=== PATIENT | female | born 1940 | race Caucasian/White ===

== ENCOUNTER 2023-12-30 06:17 | Day surgery (SDC) | payer BC, SELFPAY ==
[2023-12-30] VITALS (12 sets, daily range): BP systolic 114–132; BP diastolic 66–91; BMI 29.0
[2023-12-30] MEDS: TYLENOL 1000 MG PO (11:05)
[2023-12-30] MEDS: NORMOSOL-R 1000 IV (11:06)
[2023-12-30] MEDS: CELEBREX 200 MG PO (11:16)
== END 2023-12-30 15:57 | disposition home or self-care (01) ==
LOC: SDS 06:17
PROVIDERS: ATTENDING PHYSICIAN Orthopaedic Surgery Hand Surgery; FAMILY PHYSICIAN Physician Assistant
DX: M75.41 Impingement syndrome of right shoulder (principal); G56.01 Carpal tunnel syndrome, right upper limb; M75.101 Unspecified rotator cuff tear or rupture of right shoulder, not specified as traumatic; M75.21 Bicipital tendinitis, right shoulder
CPT/HCPCS: 29827; 29826; 24310; 64721; C1713

== ENCOUNTER → 2024-07-28 10:01 | Outpatient (REF) | payer BC, SELFPAY | LOC: HWRCS 10:01 | PROVIDERS: ATTENDING PHYSICIAN Internal Medicine Cardiovascular Disease; FAMILY PHYSICIAN Internal Medicine | DX: I35.0 Nonrheumatic aortic (valve) stenosis (principal) | CPT/HCPCS: 93306 ==

== ENCOUNTER 2024-08-16 07:26 | Day surgery (SDC) | payer BC, SELFPAY ==
[2024-08-16] VITALS (12 sets, daily range): BP systolic 107–136; BP diastolic 54–120; BMI 30.4
[2024-08-16 08:05] LABS: Hematocrit 43.1 % (37.0-47.0); Hemoglobin 15.2 g/dL (12.0-16.0); Mean Corp Hgb Conc. 35.3 g/dL (33.0-37.0); Mean Corpuscular Hgb 32.4 pg (27.0-31.0); Mean Corpuscular Volume 91.9 fL (81.0-99.0); Mean Platelet Volume 10.5 fL (7.4-10.4); Platelet Count 236 10^3/uL (130-400); Red Blood Cell Count 4.69 10^6/uL (4.20-5.40); Red Cell Dist. Width 12.1 % (11.5-14.5); White Blood Cell Count 5.9 10^3/uL (4.8-10.8)
[2024-08-16 08:14] LABS: ALT (SGPT) 26 U/L (0-35); AST (SGOT) 27 U/L (14-36); Albumin 5.1 g/dl (3.5-5.0); Alkaline Phosphatase 65 U/L (38-126); Blood Urea Nitrogen 24 mg/dl (7-17); Calcium 9.7 mg/dl (8.4-10.2); Carbon Dioxide 22 mmol/L (22-30); Chloride 106 mmol/L (98-107); Glucose 159 mg/dl (70-99); Potassium 4.4 mmol/L (3.5-5.1); Sodium 141 mmol/L (135-145); Total Bilirubin 0.9 mg/dl (0.2-1.3); Total Protein 7.6 g/dl (6.3-8.2); eGFR > 60.00
[2024-08-16] MEDS: LOW STRENGTH ASPIRIN 324 MG PO (08:30)
[2024-08-16] MEDS: NSS 264 ML IV (08:31)
[2024-08-16] MEDS: PEPCID 40 MG PO (09:31)
--- NOTE | 2024-08-16 11:07 | ITS.CL.CATH ---
Operating Room Assistant - Catheterization
Cardiac Catheterization
Procedure Report:
RIGHT AND LEFT HEART STUDY
Date of Procedure: August 16, 2024
Referring: Dr. Rosi Arroyo
PROCEDURES:
1. Right heart catheterization
2. Left heart catheterization with coronary and single-plane left ventriculography
INDICATION: This is an 84-year-old female with a past medical history notable for aortic stenosis. Last summer she experienced a syncopal episode that was attributed to dehydration. She has chronic back discomfort. She has noticed some dyspnea
when walking up hills that seems more prominent this year than she had noted in the past.
Serial echocardiograms have been followed.
-07/28/2024: Echo: LV: EF 70-75%, AV: Peak and mean 72/46 mmHg with peak velocity 4.25 m/s, and CECILE 1.0 cm�. AI: moderate. MV: Mild MR, TV: Mild TR with estimated PAP 32 mmHg
-08/12/2023: Echo: LV: Normal size and function. EF 60-65%. MV: Thickened with mitral annular calcification, AV: P/M gradient 36/25 mmHg with peak velocity 3.0 m/s and CECILE 1.5 cm�. Mild to moderate AI, TV: Mild TR
-08/06/2022: Echo: LV: Normal size. Mild LVH. EF 55-60%. MV: MAC with mild MR, AV: Calcified with P/M gradient 38/18 mmHg with peak velocity of 3.0 m/s, mild AI, TV: Mild-moderate TR with estimated PAP 31-36 mmHg
-01/15/2022: Echo: LV: EF 65-70%. MV: Trace MR, AV: P/M gradient 49/31 mmHg, CECILE 1.1 cm�, mild AI. TV: Trace TR with estimated PAP 28 mmHg
ACCESS: Right radial artery, 6 [place] sheath in right common femoral vein, 6 [place] sheath
HEMODYNAMICS : mmHg
RA (m) : 12
RV (s/d) : 29/6, 18
PA (s/d, m) : 26/11, 19
PCWP (m) : 12
AO (s/d, m) : 107/64, 84
LV (s/d) : 150/10
LVEDP : 15
Estimated Chelsy Cardiac Output: 5.7 L / min and Cardiac Index: 2.9 L/ min / m-2
Systemic vascular resistance: 12.6 Wood units or 1010 [id number]-blr-ro(-5)
Pulmonary vascular resistance: 1.22 Wood units or 98.2 tayoc-guo-es(-5)
Aortic Valve:
Mean Gradient: 36 mmHg
Aortic Valve Area: 0.87 to 0.91 cm2
CORONARY FINDINGS :
Dominance: Right
LEFT MAIN: Normal
LEFT ANTERIOR DESCENDING: The LAD is a large-caliber vessel originating normally from the left main and running in the anterior interventricular groove. The LAD is widely patent with only minor luminal irregularities
CIRCUMFLEX: The circumflex is a moderate to large caliber nondominant vessel supplying 2 obtuse marginal branches. Only minor irregularities are noted
RIGHT CORONARY ARTERY: Large-caliber dominant vessel with only minor irregularities over its course
VENTRICULOGRAPHY: Left ventriculography is performed in SINGH projection. The digital single-plane left ventricular ejection fraction is estimated at 65%.
RADIATION SUMMARY: Fluoro Time (min): 12.8, Dose (mGy): 410.2, DAP (Gy.cm2) : 45.5
CONCLUSIONS
1. Nonobstructive coronary disease
2. Preserved left ventricular systolic function
3. Compensated right and left ventricular filling pressures
4. Moderate to severe aortic stenosis with recent decline in exercise tolerance especially when walking up hills.
RECOMMENDATIONS
1. Begin TAVR evaluation given recent development of exertional intolerance
2. Ms Fink was not sure she could take aspirin due to risk of GI bleeding
Copy to: Dr. Rosi Arroyo
--- NOTE | 2024-08-16 14:17 | CONSULT.STRU ---
Consultation
-
Date/Time Consultation Requested: 08/16/2024
Date/Time Consultation Performed: 08/16/2024
Requesting Provider: Dr. Jovani Robbins
Performing Provider: CORTEZ Mckee
Reason for Consultation: Aortic stenosis/ TAVR evaluation
Patient History
Physicians
Family Physician: Dr. Moe Gustafson
Outpatient Full Stack Developer: Dr. Rosi Arroyo
Primary Full Stack Developer: Dr. Rosi Arroyo
History of Present Illness
Procedure Type:�Isolated AVR
PERIOPERATIVE OUTCOME ESTIMATE %
Operative Mortality 2.19%
Morbidity & Mortality 5.76%
Stroke 1.23%
Renal Failure 0.689%
Reoperation 2.43%
Prolonged Ventilation 2.58%
Deep Sternal Wound Infection 0.04%
Long Hospital Stay (>14 days) 2.66%
Short Hospital Stay (<6 days)* 43.4%
Patient is a very pleasant 84yo female here today for cardiac cath as part of her aortic stenosis evaluation. She denies any new symptoms of PIMENTEL, fatigue or lightheadedness. She denies chest pain, palpitations and orthopnea. She does state she gets
dyspneic on exertion when having to ambulate up a significant incline but says this has been happening for years. It is really unclear if related to her aortic valve. Her echocardiogram in 07/28/2024 was significant for a PG/M/46, CECILE: 1.0, peak
velocity 425cm/s, mild to moderate AI, mild MR, EF: 70-75%. This is increased from previous echo with PG/M/25. Cardiac cath today her Aortic Valve MG was 36mmHg, CECILE: 0.87 to 0.91. Non-obstructive CAD.
Reviewed the pathophysiology of aortic stenosis with the patient. Explained the treatment options of SAVR and TAVR. Explained the TAVR evaluation process including follow up BMP, CT TAVR scan, CT surgery consult and Heart Team discussion. Provided
with script for BMP next week, script and appointment for CT TAVR, Consult appointment with Dr. Guzmán and a copy of the TAVR education booklet with contact information. Allowed for and answered questions. Patient also with shrimp allergy so as a
precaution prescribed Prednisone 50mg - 13 hours, 7 hours and 1 hour prior to contrast administration plus benadryl 50mg one hour prior.
Past Medical History
Past Medical History: Covid-19 (09/2020), PIMENTEL (when going up significant inclines), HTN, Hypercholesterolemia, Valvular Disease (Mild MR, Moderate to severe , mild to moderate AI) and Other (LVH, CVI, pre-diabetic, arthritis, h/o osteomyelitis,
chronic back issues/scoliosis)
Past Surgical History
Past Surgical History: Appendectomy, Tonsilectomy and Other (partial toe amputation 3rd toe, [place]. TKR, R-ERIN, Left hip ORIF, surgery for polycystic ovaries, rotator cuff repair)
Dental History
Last visit 08/15/2024- Dr. Cade in [facility]
Family History
Mother: at Age (86yo after significant fall)
Father: at Age (58yo- rheumatic heart, CHF)
Social History
Alcohol: Occasional
Drug: None
Tobacco: Smoker (Quit 50 years ago)
Personal:
Living: With Spouse
Allergies
Allergy/AdvReac Type Severity Reaction Status Date / Time
aspirin Allergy Unknown Verified 08/16/24 07:59
NSAIDS (Non-Steroidal Allergy GI Bleed Verified 08/16/24 07:59
Anti-Inflamma
pollen extracts Allergy Sneezing, Verified 08/16/24 07:59
coughing
shrimp Allergy Hives Verified 08/16/24 07:59
oxycodone AdvReac Mild Unknown Verified 12/30/23 10:51
lisinopril AdvReac COUGH Verified 08/16/24 07:59
Home Medications
�Medication �Instructions �Recorded �Confirmed �Type
multivitamin with folic acid 400 1 tab PO DAILY Supplement 05/08/09 08/16/24 History
mcg tablet (Tab-A-Agus)
losartan 50 mg tablet 50 mg PO DAILY Blood pressure 07/26/21 08/16/24 History
vitamin B complex 1 tab PO PRN PRN Twitchy eyes 07/26/21 08/16/24 History
atorvastatin 10 mg tablet 10 mg PO DAILY 12/28/23 08/16/24 History
Palmer 3 1 tab PO DAILY 08/16/24 08/16/24 History
biotin 5 mg tablet 5 mg PO MOWEFR 08/16/24 08/16/24 History
STS%
STS %: 2.19%
Review of Systems
-
History Source: Patient
General: Reports No Symptoms
HEENT: Reports No Symptoms
Respiratory: Reports PIMENTEL (with significant exertion, unchanged in years)
Cardiac: Reports No Symptoms; Denies Chest Pain, CAD or Edema
Abdomen/GI: Reports No Symptoms; Denies Abdominal Pain, Nausea, Vomiting or Diarrhea
: Reports No Symptoms; Denies Dysuria, Frequency or Frequency
Musculoskeletal: Reports Edema (occasional mild LE)
Skin: Reports Rash (occurs annually in March and lasts until May, unknown diagnosis )
Neurological: Reports No Symptoms; Denies CVA, TIA, Headaches or Seizures
Vascular: Reports No Symptoms
Physical Exam
Vital Signs
Temp 97.5 F 08/16/24 08:07
Temp route: Oral 08/16/24 08:07
Pulse 87 08/16/24 14:00
Resp Rate 19 08/16/24 14:00
Blood pressure 134/79 08/16/24 13:56
Blood pressure extremity used: Left upper arm 08/16/24 12:50
Position: Lying 08/16/24 12:50
MAP (cuff-Julien Monitor) 96 08/16/24 13:56
SaO2 94 08/16/24 14:00
Oxygen Mode of Delivery Room air 08/16/24 12:50
Can the patient verbally communicate their pain? Yes 08/16/24 12:50
Actual Weight 88.1 kg 08/16/24 08:16
Body Mass Index (BMI) 30.4 08/16/24 08:16
Labs
08/16/24 07:40
08/16/24 07:40
Diagnostic Studies
Cardiac Catheterization 08/16/2024:
HEMODYNAMICS : mmHg
RA (m) : 12
RV (s/d) : 29/6, 18
PA (s/d, m) : 26/11, 19
PCWP (m) : 12
AO (s/d, m) : 107/64, 84
LV (s/d) : 150/10
LVEDP : 15
Estimated Chelsy Cardiac Output: 5.7 L / min and Cardiac Index: 2.9 L/ min / m-2
Systemic vascular resistance: 12.6 Wood units or 1010 wvuvj-ptw-rj(-5)
Pulmonary vascular resistance: 1.22 Wood units or 98.2 wivll-tps-de(-5)
Aortic Valve:
Mean Gradient: 36 mmHg
Aortic Valve Area: 0.87 to 0.91 cm2
CORONARY FINDINGS :
Dominance: Right
LEFT MAIN: Normal
LEFT ANTERIOR DESCENDING: The LAD is a large-caliber vessel originating normally from the left main and running in the anterior interventricular groove. The LAD is widely patent with only minor luminal irregularities
CIRCUMFLEX: The circumflex is a moderate to large caliber nondominant vessel supplying 2 obtuse marginal branches. Only minor irregularities are noted
RIGHT CORONARY ARTERY: Large-caliber dominant vessel with only minor irregularities over its course
VENTRICULOGRAPHY: Left ventriculography is performed in SINGH projection. The digital single-plane left ventricular ejection fraction is estimated at 65%.
RADIATION SUMMARY: Fluoro Time (min): 12.8, Dose (mGy): 410.2, DAP (Gy.cm2) : 45.5
CONCLUSIONS
1. Nonobstructive coronary disease
2. Preserved left ventricular systolic function
3. Compensated right and left ventricular filling pressures
4. Moderate to severe aortic stenosis with recent decline in exercise tolerance especially when walking up hills.
RECOMMENDATIONS
1. Begin TAVR evaluation given recent development of exertional intolerance
2. Ms Fink was not sure she could take aspirin due to risk of GI bleeding
Echocardiogram 07/28/2024:
CONCLUSIONS
1. Mild concentric left ventricular hypertrophy with dynamic left ventricular
systolic function, EF 70-75%
2. Thickened mitral leaflets with mitral annular calcification, mild mitral
regurgitation and normal left atrium
3. Moderate to severe aortic stenosis, peak/mean gradient 72/46 mmHg, aortic
valve area 1.0 cm2, dimensionless index 0.31. Mild to moderate aortic
regurgitation
4. Normal right heart with pulmonary artery systolic pressure 32 mmHg
5. The ascending aorta is 3.8 cm
In July 2023, peak and mean aortic valve gradients were 36 and 25 mmHg.
The aortic valve area was 1.5 cm2
Indications:
Nonrheumatic aortic (valve) stenosis
Rhythm: Atrial fibrillation
Portable Study: No
Technical Quality: Good
Contrast: None
BP: 118 / 82
PROCEDURE
A complete Transthoracic Echocardiogram was performed utilizing two-dimensional
evaluation with color flow and spectral Doppler analysis.
FINDINGS
Left Ventricle
Normal left ventricular chamber size. Mild concentric left ventricular
hypertrophy. Normal regional wall motion. Normal left ventricular systolic
function. Normal diastolic function. Left ventricular ejection fraction is 70-
75% by Haq's method of discs. Normal diastolic function.
Right Ventricle
Normal right ventricular size and function.
Left Atrium
Normal left atrium. Indexed LA volume is within normal range (15-34 mL/m2).
Right Atrium
The right atrium is of normal size as is the IVC.
Mitral Valve
Thickened mitral valve leaflets. Mitral annular calcification. Mitral valve
opens normally. Mild mitral regurgitation.
Aortic Valve
Trileaflet aortic valve. Thickened aortic valve with restricted leaflet motion.
Peak/mean gradients across the valve are 72/46 mmHg. Using an LVOT of 2.2 cm
the calculated valve area is 1.0 cm2. Moderate to severe aortic stenosis.
Moderate aortic regurgitation by pressure half-time but appears mild by color-
flow, Dimensionless index 0.31
Tricuspid Valve
Structurally normal tricuspid valve. Tricuspid valve opens normally. Mild
tricuspid regurgitation. Estimated pulmonary artery pressure of 32 mmHg,
assuming a right atrial pressure of 3 mmHg. Right heart pressures were not
elevated.
Pulmonic Valve
Structurally normal pulmonic valve. Pulmonic valve opens normally. Trace
pulmonic regurgitation.
Pericardium\\Pleura
Normal pericardium and pleura without evidence of effusion.
Aorta
Sinuses of Valsalva (3.7 cm) and ascending aorta 3.8 cm dilatation. The aortic
arch is normal in caliber.
Other Finding
The IVC is of normal size and demonstrates normal respiratory variation.
Interatrial septum is intact with no evidence of shunting by color flow
Doppler. No intracardiac mass or thrombus formation seen.
MEASUREMENTS (Male / Female) Normal Values
2D ECHO
LV Diastolic Diameter PLAX 4.2 cm 4.2 - 5.9 / 3.9 - 5.3 cm
LV Systolic Diameter PLAX 2.7 cm
IVS Diastolic Thickness 1.1 cm 0.6 - 1.0 / 0.6 - 0.9 cm
LVPW Diastolic Thickness 1.1 cm 0.6 - 1.0 / 0.6 - 0.9 cm
LV Relative Wall Thickness 0.5
LVOT Diameter 2.2 cm
LV Ejection Fraction MOD BP 73.6 % >= 55 %
LV Stroke Volume MOD BP 107.4 cm3
LV Stroke Volume MOD 4C 95.2 cm3
LV Stroke Volume 4C AL 109.0 cm3
LV Stroke Volume MOD 2C 102.1 cm3
LV Stroke Volume 2C AL 110.1 cm3
LA Area 4C View 20.4 cm2 <= 20 cm2
LA Length 4C 6.0 cm
LA Volume 54.6 cm3 18 - 58 / 22 - 52 cm3
LA Volume Index 31.6 cm3/m2 16 - 34 cm3/m2
RV Diastolic Basal Diameter 3.0 cm 2.0 - 2.8 cm
RV Diastolic Mid Diameter 2.6 cm 2.7 - 3.3 cm
Aorta at Sinotubular Diameter 3.6 cm
Ascending Aorta Diameter 3.8 cm
Aorta at Sinuses Diameter 3.7 cm
M-MODE
AV Cusp Separation MM 0.5 cm
DOPPLER
AV Peak Velocity 425.0 cm/s
AV Peak Gradient 72.3 mmHg
AV Mean Gradient 48.0 mmHg
AV Velocity Time Integral 94.1 cm
AI Peak Velocity 450.3 cm/s
AI Peak Gradient 81.1 mmHg
AI Pressure Half Time 306.3 ms
LVOT Peak Velocity 133.0 cm/s
LVOT Peak Gradient 7.1 mmHg
LVOT Velocity Time Integral 28.9 cm
LVOT Stroke Volume 110.0 cm3
LVOT Stroke Volume Index 52.4 ml/m2 empty
AV Area Cont Eq vti 1.2 cm2
AV Area Cont Eq pk 1.2 cm2
Mitral E Point Velocity 100.0 cm/s
Mitral A Point Velocity 182.0 cm/s
Mitral E to A Ratio 0.5
LV E' Lateral Velocity 9.8 cm/s
Mitral E to LV E' Lateral Ratio 10.2
LV E' Septal Velocity 9.9 cm/s
Mitral E to LV E' Septal Ratio 10.1
TR Peak Velocity 268.0 cm/s
TR Peak Gradient 28.7 mmHg
Exam
General: Well Developed, Well Nourished, No Apparent Distress and Comfortable
HEENT: Moist Mucous Membranes and PERRLA
Neck: Trachea Midline
Respiratory: Clear; Negative Wheezes, Crackles, Rhonchi or Accessory Muscle Use
Cardiac: S1/S2, Regular Rhythm and Murmur (Grade III/ systolic )
GI: Soft, Non Tender, Non Distended and Normal Bowel Sounds
Rectal: Deferred by Provider
Skin: Warm and Dry; Negative Rash
Neuro: AO x 3, No Motor Deficits and Nonfocal/Grossly Intact
Extremities: Pulses (+2 DP pulses bilateral LE); Negative Lower Level Edema
Psych: Calm
Assessment / Plan
-
Severe Aortic stenosis:
��������������� Continue evaluation for TAVR
��������������� BMP 08/23/[address] [facility]
��������������� CT TAVR scan 09/01/2024 at 0930 at
��������������� CT surgery consult with Dr. Guzmán 09/15/2024
��������������� Heart team discussion at [facility]
Dental Clearance
Will need to be on ASA 81mg daily for TAVR, begin today to see if able to tolerate without bleeding hemorrhoids
Data Reviewed
-
EKG: Report Reviewed by me
Grinder: Report Reviewed by me and Discussed with Physician
Echo: Report Reviewed by me and Discussed with Physician
Labs: Labs Reviewed by me
Old Records: Reviewed (Cardiology office notes)
Total Time Spent with Patient (in minutes): 35
== END 2024-08-16 14:20 | disposition home or self-care (01) ==
LOC: CATH 07:26
PROVIDERS: ATTENDING PHYSICIAN Internal Medicine Interventional Cardiology; FAMILY PHYSICIAN Internal Medicine; OTHER PHYSICIAN Internal Medicine Cardiovascular Disease
DX: I35.0 Nonrheumatic aortic (valve) stenosis (principal); Z90.49 Acquired absence of other specified parts of digestive tract; E78.00 Pure hypercholesterolemia, unspecified; M86.60 Other chronic osteomyelitis, unspecified site; R73.03 Prediabetes; R06.09 Other forms of dyspnea; R55 Syncope and collapse; I25.10 Atherosclerotic heart disease of native coronary artery without angina pectoris; Z82.49 Family history of ischemic heart disease and other diseases of the circulatory system; Z86.16 Personal history of COVID-19
CPT/HCPCS: 80053; 85027; 93460; C1769; C1894; Q9967

== ENCOUNTER → 2024-08-26 10:46 | Outpatient (REF) | payer BC, SELFPAY ==
[2024-08-26 15:27] LABS: Blood Urea Nitrogen 19 mg/dl (7-17); Calcium 9.5 mg/dl (8.4-10.2); Carbon Dioxide 26 mmol/L (22-30); Chloride 103 mmol/L (98-107); Glucose 104 mg/dl (70-99); Potassium 4.5 mmol/L (3.5-5.1); Sodium 143 mmol/L (135-145); eGFR > 60.00
== END ==
LOC: HWLAB 10:46
PROVIDERS: ATTENDING PHYSICIAN Nurse Practitioner Adult Health; FAMILY PHYSICIAN Internal Medicine
DX: I35.0 Nonrheumatic aortic (valve) stenosis (principal)
CPT/HCPCS: 36415; 80048

== ENCOUNTER → 2024-09-01 09:03 | Outpatient (REF) | payer BC, SELFPAY | LOC: RAD 09:03 | PROVIDERS: ATTENDING PHYSICIAN Nurse Practitioner Adult Health; FAMILY PHYSICIAN Internal Medicine; OTHER PHYSICIAN Thoracic Surgery (Cardiothoracic Vascular Surgery); REFERRING PHYSICIAN Internal Medicine Cardiovascular Disease | DX: I35.0 Nonrheumatic aortic (valve) stenosis (principal) | CPT/HCPCS: 74174; 75572; Q9967 ==

== ENCOUNTER 2024-11-10 05:27 | Inpatient (IN) | payer BC, MEDICARE, SELFPAY ==
[2024-11-01 11:58] VITALS: BMI 29.8
[2024-11-01 12:44] LABS: % Basophils 0.8 % (0-2); % Eosinophils 1.6 % (0-6); % Immature Granulocytes 0.4 % (0-0.5); % Lymphocytes 33.7 % (20.5-51.1); % Monocytes 7.2 % (1.7-9.3); % Neutrophils 56.3 % (42.2-75.2); Absolute Eosinophils 0.1 10^3/uL (0-0.7); Absolute Lymphocytes 1.7 10^3/uL (1.2-3.4); Absolute Monocytes 0.4 10^3/uL (0.1-0.6); Absolute Neutrophils 2.8 10^3/uL (1.4-6.5); Hematocrit 43.9 % (37.0-47.0); Hemoglobin 14.6 g/dL (12.0-16.0); Mean Corp Hgb Conc. 33.3 g/dL (33.0-37.0); Mean Corpuscular Hgb 32.1 pg (27.0-31.0); Mean Corpuscular Volume 96.5 fL (81.0-99.0); Mean Platelet Volume 9.8 fL (7.4-10.4); Nucleated Red Blood Cells % 0 %; Platelet Count 248 10^3/uL (130-400); Red Blood Cell Count 4.55 10^6/uL (4.20-5.40); Red Cell Dist. Width 12.1 % (11.5-14.5)
[2024-11-01 12:59] LABS: ALT (SGPT) 29 U/L (0-35); APTT 30.3 Sec (23.4-35.0); AST (SGOT) 30 U/L (14-36); Albumin 4.6 g/dl (3.5-5.0); Alkaline Phosphatase 70 U/L (38-126); Blood Urea Nitrogen 19 mg/dl (7-17); Calcium 9.3 mg/dl (8.4-10.2); Carbon Dioxide 29 mmol/L (22-30); Chloride 102 mmol/L (98-107); Direct Bilirubin 0.1 mg/dl (0.0-0.4); Estimated Creatinine Clearance 70 ml/min; Glucose 101 mg/dl (70-99); INR 0.91; PT 12.5 Sec (11.4-14.6); Potassium 4.1 mmol/L (3.5-5.1); Sodium 141 mmol/L (135-145); Total Bilirubin 0.6 mg/dl (0.2-1.3); Total Protein 7.2 g/dl (6.3-8.2); eGFR > 60.00
[2024-11-01 13:07] LABS: NT-proBNP 65.4 pg/ml
[2024-11-01 13:23] LABS: Urine Albumin Negative (Neg - Trace); Urine Bilirubin Negative (Negative); Urine Character Clear (Clear); Urine Color Yellow; Urine Glucose Negative (Negative); Urine Ketone Negative (Negative); Urine Leukocyte Negative (Negative); Urine Nitrite Negative (Negative); Urine Occult Blood Negative (Negative); Urine Specific Gravity 1.015 (<1.030); Urine Urobilinogen Negative (Neg - 1+)
[2024-11-01 13:43] LABS: Glycohemoglobin (HgbA1c) 5.6 % (4.0-5.6)
--- NOTE | 2024-11-01 13:43 | CM ---
Met with Mrs. Fink in [facility]. She states prior to admission she resides with her spouse in a two story home with one step to enter. She states she has a full flight of steps to get to bedroom/full bathroom. She states she has a powder room on the
first floor. She states she mainly stays on the first floor. She states prior to admission she was independent with ambulation and adls. She states she does not have any DME in the home. She states she has a prescription plan. The discharge plan
is to retrun home with her spouse and a home visit by the Transitional Care Nurse when medically stable.
We reviewed pre-op and post-op routines. we reviewed the shower instructions. She has the soap, written instructions and the TAVR Educational Booklet. We also reviewed restrictions including driving and lifting restrictions. We discussed a home
visit by the Transitional Care Nurse. She is agreeable to a home visit. The plan is for TAVR on 11/10/24.
--- NOTE | 2024-11-01 15:10 | HPS.HSE ---
Family Physician
-
Family Physician: Moe Gustafson
Radiology Physician: Rosi Arroyo
Chief Complaint
-
Severe aortic stenosis- pre-operative History and Physical for TAVR
History of Present Illness
Dinorah Fink is an 84-year-old female with known progressive aortic valve stenosis. Her most recent echocardiogram demonstrated a peak/mean gradient of 72/46 mmHg, respectively. CECILE was calculated to be 1.0 and peak velocity was 4.25. Her left heart
catheterization revealed nonobstructive coronary disease. Her cardiac index was 2.9, invasive mean gradient was 36 mmHg, calculated CECILE was to be 0.8-0.9. From a symptomatology standpoint, she describes some increased fatigue, and some SOB when
walking inclines / hikes. In comparison to 1 year ago, she feels about the same, she tells me that she has been SOB for quite some time and had an episode of syncope 3 years ago that was unexplained. She denies chest pain, palpitations, PND,
orthopnea or peripheral edema.
Dinorah's history and studies were reviewed by the heart team and the team was in agreement that TAVR utilizing a 34mm evolut valve was the appropriate treatment for her aortic stenosis. Reviewed with her the risks of TAVR including PPM, bleeding and
stroke. She is a full rescue per Dr. Guzmán's office consult. She will hold all her medications except her aspirin on 11/10. She will take that prior to her 529 arrival. She is aware she will receive a call on to confirm her arrival. Allowed for
and answered questions.
Medical History
Past Medical History
Past Medical History: Reports HTN, Hypercholesterolemia, Valvular Disease (severe aortic stenosis, mild MR) and Other (arthritis, polycystic ovary disease,venous insufficiency, h/o bursitis R-UE, Carpel tunnel L-hand)
Past Surgical History: Reports Tonsilectomy and Other (partial amputation of right 3rd toe, R-ERIN, Bilateral TKR, ORIF left hip, bilateral cataract surgery, repair of torn rotator cuff)
Social History
Tobacco: Former Smoker
Alcohol: Occasional
Personal:
Living: With Family
Employment: Retired
Family History
Family History: Not pertinent
Allergies / Home Medications
Allergies reflects when Allergies were last updated in [employer].
Home Medications with original date entered in [employer]
Allergy/Medication List:
Allergies:
Lisinopril
NSAIDs
Oxycodone
Shrimp
Medications:
ASA 81mg daily
Lipitor(Atorvastatin Calcium) 10 MG Tablet 1 tablet Orally Once a day
Losartan Potassium 50 MG Tablet 1 tablet Orally Once a day
Review of Systems
-
History Source: Patient
Constitutional: Reports Fatigue; Denies Fever, Weight Gain or Weight Loss
EENT: Reports Other (post nasal drip)
Respiratory: Reports Cough (occasional, clear secretions)
Cardiac: Reports No Symptoms; Denies Chest Pain, Palpitations or Syncope
Abdomen/GI: Reports No Symptoms; Denies Abdominal Pain, Nausea, Vomiting or Diarrhea
: Reports No Symptoms; Denies Dysuria, Frequency or Urgency
Musculoskeletal: Reports No Symptoms
Skin: Reports No Symptoms
Neurological: Reports No Symptoms; Denies Headache, Weakness or Numbness
Endocrine: Reports No Symptoms
Hematologic/Lymphatic: Reports No Symptoms
Psych: Reports No Symptoms and Calm
Physical Exam
Physical Exam
General: Well Developed, Well Nourished, No Apparent Distress and Comfortable
HEENT: NormoCephalic, Moist mucous membranes and PERRLA
Respiratory: Clear and Non Labored Respirations; No Wheezes, Rales, Rhonchi or Crackles
Cardiac: S1/S2, Regular Rhythm and Murmur (Grade III/ systolic)
Breast: Deferred by me
GI: Soft, Non Tender, Non Distended and Normal Bowel Sounds
Rectal: Deferred by Provider
Genito-urinary: Deferred by me
Musculoskeletal: No Clubbing, No Cyanosis and No Edema
Skin: Warm and Dry
Neuro: AO x 3
Psych: Calm and Intact Judgment/Insight
Laboratory Results
-
11/01/24 12:09
11/01/24 12:09
Laboratory Results
PT 12.5 Sec (11.4-14.6) 11/01/24 12:09
INR 0.91 11/01/24 12:09
APTT 30.3 Sec (23.4-35.0) 11/01/24 12:09
Total Bilirubin 0.6 mg/dl (0.2-1.3) 11/01/24 12:09
AST 30 U/L (14-36) 11/01/24 12:09
ALT 29 U/L (0-35) 11/01/24 12:09
Alkaline Phosphatase 70 U/L (38-126) 11/01/24 12:09
Data Reviewed
-
Diagnostic Radiology: Report Reviewed by me (chest x-ray-no acute pulmonary process)
CT Scan: Report Reviewed by me (confirmed TAVR sizing)
Medical Tests (Nuc Med, Echo, EKG etc): Report Reviewed by me (Sinus rhythm, PVCs, Left AFB)
Lab Data: Labs Reviewed by me
Old Records: Reviewed (consult notes, cardiac cath and echo report)
Impression/Plan
-
IMPRESSION:
Severe, symptomatic aortic stenosis
PLAN:
-TF TAVR utilizing 34mm Evolut valve
-Continue ASA 81mg daily
-POD #1/#30 echocardiogram
- Cardiac rehab consult
-Outpatient follow up with cardiology- Dr. Rosi Arroyo
[2024-11-10] VITALS (17 sets, daily range): BP systolic 83–141; BP diastolic 36–82; BMI 29.0
--- NOTE | 2024-11-10 05:53 | PTCARENOTE ---
Patient received as direct admit for TAVR procedure. Patient ambulated independently into the room. Patient voided in bathroom. Height and weight obtained. Right and left BP obtained. Patient 97-98% on room air. Sinus rhythm on school lunch monitor.
Admission completed. Patient clipped and wiped with CHG. Patient alert to self, place and time; Pupils 3mm, equal, reactive to light, brisk. Neuro WNL. Lungs clear to auscultation. Murmur noted. Per patient she took 81mg of Aspirin this morning.
Nothing my mouth since dinner yesterday (between 1600 and 1700) per patient. Name and date of confirmed. Bilateral pedal pulse palpable. Patient denies feeling lightheaded, dizzy, and/or short of breath. Patient denies pain at this time. Call
potter within reach.
--- NOTE | 2024-11-10 06:11 | W.CVOR.SURPR ---
CVOR Surgeon Immed Pre Op
-
I have examined this patient prior to performance of the scheduled procedure.
The patient's condition is unchanged from the time of the dictated/written History and
Physical and the patient is able to undergo the scheduled procedure.
TF TAVR
Full Rescue
[2024-11-10 08:04] LABS: ACT-LR - POC 313 Seconds (116-155)
[2024-11-10 08:19] LABS: ACT-LR - POC 258 Seconds (116-155)
--- NOTE | 2024-11-10 08:40 | W.PN.CT.SURG ---
CT Surgery Operative Note
-
OPERATIVE REPORT
Preoperative Diagnosis: Severe aortic valve stenosis, symptomatic
Postoperative Diagnosis: Same
Procedure(s) Performed: Right trans femoral TAVR with a 34 mm Medtronic Evolut FX device
Date of Procedure: 11/10/2024
Comorbidities:
1. Severe symptomatic aortic stenosis, symptomatic
2. Acute on chronic congestive heart failure with LVEDP of 30 mmHg pre-TAVR
3. History of COVID-19 infection
4. Polycystic ovarian syndrome
5. Osteopenia
6. Multiple orthopedic procedures
Cardiac Surgeon: Harvey Guzmán MD, MS
Senior Electrical Design Engineer: Lori Edmondson MD
Anesthesia: Conscious Sedation, Local
EBL: 100cc
Products: none
Implant: Medtronic Evolut FX 34mm SN: [id number]
Indication(s) for Procedures: 84-year-old female with severe aortic stenosis. Symptomatic. She was seen by more providers including interventional cardiology, cardiology, and cardiac surgery and all deemed her appropriate for transcatheter
intervention. CT-TAVR protocol revealed acceptable anatomy for a self-expanding TAVR valve.
Start time: 0736hrs
Deployment time: 0811hrs
End time: 0826hrs
Radiation Dose (mGy): 816.47
DAP (cm2.Gy): 81.9902
Fluoroscopy time (minutes): 15.8
Contrast volume (ml): 180
TAVR gradient (mmHg): 5-6mmHg
Heparin Dose: 7000units
Protamine Dose: 30mg
Final Valve Positionin-6mm:2mm
Recaptures: 2
Findings: Preoperative LVEF was 65% and was 65% following TAVR without inotropic support. Function was overall normal without regional wall motion abnormalities or dyskinesia. The aortic valve was well seated with only trace PVL. The patient did not
require pacing postoperative and was in sinus rhythm, initially she had a lot of ectopy but this later resolved. There was successful placement of 34 Evolut FX TAVR valve without acute complications. LVEDP pre-TAVR was 30 mmHg indicating acute on
chronic congestive heart failure. Lasix to be given in the IVU.
Access:
1. Device -right common femoral artery, perclose x 2
2. Pigtail -left common femoral artery + 6Fr angioseal
3. Transvenous Pacer -left femoral vein
Description of Procedure: The patient was taken to the laboratory coordinator. Their identity and procedure to be performed were verified and they were positioned supine on the laboratory coordinator table. Induction via conscious sedation with local analgesia. The patient was
then prepped and draped from chin to thigh in a sterile fashion. A preoperative time-out was performed with all members of the team present. Using fluoroscopy, bilateral femoral heads and their margins were identified. Arterial and venous access
were done with a micropuncture needle with Seldinger technique. Test pacing revealed capture with excellent threshold. Angiography confirmed proper puncture site and femoral artery integrity. Two Per-Close devices were used on the TAVR side. An AL1
catheter was used to deliver a extrastiff wire and insertion of the working sheath. An AL1 catheter with a straight stiff wire was used to access the LV. This was then exchanged for pigtail catheter and LVEDP was measured here and found to be
approximately 30 mmHg. The valve was prepped and mounted on to the device carrier. An ACT of >250 was achieved. We verified x 3 under fluoroscopy that the valve was mounted correctly with paddles in appropriate position. We than set our parameters
to achieve a co-planar view with the pigtail positioned in the NCC. We advanced the device with its in-line sheath into the descending thoracic aorta and over the arch into the root and positioned across the aortic valve. Contrast fluoroscopy was
used to visualize the prosthesis across the valve. We performed a quick pre-deployment time out. We verified positioning based on the pigtail and gentle contrast puffs. The valve was slowly deployed to just before annular contact. We paused here and
verified positioning in our cusp overlap view. The pacer was turned on and we continued deployment to annular contact. At this point the valve was functioning and pacing was stopped. Upon turning ALESHA, we felt that the left side was too high and the
valve embolized and so the valve was recaptured and we return to our near cusp overlap view once again. We had to perform a total of 2 recaptures and a third attempt we went deep in the noncoronary cusp and once return ESTONIAN we found that we were
just after approximately 2 mm at the left coronary cusp. This required pacing at 180 bpm. We slowly continued to deploy the valve until the crowns and paddles were free from the device. The deployment device was withdrawn into the descending
thoracic aorta while maintaining wire access across the valve. The pigtail was re-positioned at the level of the crown of the valve and angiography revealed excellent placement and seating of the valve at the annulus - there was no significant AI. A
transthoracic echocardiogram was performed. The device was removed from the groin as we cinched down the perclose devices while maintaining wire access. There was acceptable hemostasis. The pigtail was repositioned into the descending/abdominal and
runoff aortogram was performed. There was no significant stenosis or dissection of the bilateral iliofemoral systems with excellent runoff to the SFAs. All wires were removed and perclose snugged and cut. There was acceptable hemostasis of bilateral
groins.
All instrument, sponge, and needle counts were confirmed to be correct x 2 at the end of the operation. The patient was transferred to the cardiac intensive care unit in stable condition.
I, Dr. Harvey Guzmán, was present, scrubbed for, and performed all critical elements of this procedure.
Harvey Guzmán MD, MS
Cardiothoracic Surgeon
[facility]
This operative dictation was created using the Watchwith dictation system. Please excuse any grammatical, typographical, or 'sound alike' errors
[2024-11-10] MEDS: LEVOPHED 250 IV (08:45)
--- NOTE | 2024-11-10 08:55 | W.PN.UPDATE ---
Update Note
Progress Note Update
Reviewed Ms. Fink with the heart team in the preTAVR SDM meeting and confirmed a 34mm Evolut via right transfemoral access. Patient will resume aspirin post TAVR. LVEDP 31mmHg. #34mm Evolut (serial# [id number]) successfully deployed via right
transfemoral access. Post implant MG 5mmHg.
--- NOTE | 2024-11-10 09:15 | ITS.CL.TAVR ---
Warp Worker - TAVR Report
TAVR PRocedure
Procedure Report:
TRANSCATHETER AORTIC VALVE REPLACEMENT
Date of Procedure: November 10, 2024
Referring: Rosi Arroyo
Operators: Drs. Lori Edmondson MD and Harvey Guzmán
PROCEDURE PERFORMED:
1. Successful placement of 34 mm Medtronic Evolut FX valve via right femoral artery.
PREPROCEDURE NYHA CLASS: II
DESCRIPTION OF PROCEDURE: The patient was referred for assessment of severe symptomatic aortic stenosis and following a comprehensive evaluation it was felt that transcatheter aortic valve replacement (TAVR) would be the most appropriate treatment.
Informed consent was obtained prior to the procedure. A 'time-out' was called and the procedural plan was verbally confirmed by anesthesia, surgery, perfusion, and operations label clerk staff.
Arterial and venous access were obtained in the left common femoral artery and vein using a micropuncture technique and 6 Fr. sheaths were inserted. A 5 Fr. transvenous pacing wire was then advanced to the right ventricle where excellent pacing
thresholds were obtained.
A 5 Fr. pigtail catheter was then advanced to the proximal ascending aorta / noncoronary cusp where angiography was performed to define the the cusp overlap view isolating the non-coronary cusp with overlap of the right and left coronary cusps. The
cusp overlap view was SINGH 3/caudal 33.
Ultrasound guidance was then used to obtain arterial access in the right common femoral artery and a 6 Fr. sheath was inserted. Angiography was performed and the arteriotomy site appeared appropriate for preclosure with two Perclose devices. An 8
Kittitian sheath was then inserted back into the common femoral artery over a J-tipped guidewire. An AL1 catheter was then advanced to the proximal descending aorta. A Double-curve Yoel 0.035' wire was placed in the proximal descending
thoracic aorta to facilitate delivery of a 18 Fr / 13 cm Cook sheath.
An AL1 catheter was then positioned just above the aortic valve and a 0.035' Straight tip wire probed the aortic valve and crossed the stenotic leaflets. The AL1 was then advanced to the mid left ventricle. A long J-wire was advanced to the left
ventricular apex and was followed to the apex with an angled pig-tail catheter. The Double Curve Lunderquist was then positioned in the left ventricular apex. The Evolut Pro+ stent was inspected under fluoroscopy/cine while rotating the stent
delivery system. The stent paddles were within the pocket and no significant crown overlap noted.
The 18 Fr. sheath was exchanged for the Evolut InLine delivery system. The 34 mm Evolut FX stent was advanced across the stenotic leaflets. The Evolut FX valve was slowly deployed in the leaflet overlap view until the stent flared achieving
contact at 6mm below the noncoronary cusp and 2mm on left coronary cusp. The stent continued to flared achieving contact with the left coronary cusp. The image intensifier was rotated to an ESPERANZA position to remove parallax from the valve with
continued valve deployment with controlled pacing. We transitioned quickly through the rumble strips on the InLine delivery sheath until the marker band was positioned just below the paddle attachment. Angiography was performed. The valve
structure was released from the delivery system when we were happy with the valve position. Post deployment angiography had only mild aortic insufficiency and a mean gradient of 5 mmHg.
The Evolut FX delivery system capsule was reunited to the body of the delivery system. The Evolut InLine sheath was removed and the Perclose knots were advanced to the arteriotomy site resulting in excellent hemostasis.
Fluoro Time (min): 15.8, Dose (mGy): 816.5, DAP (Gy.cm2) : 81.99
CONCLUSIONS:
1. Severe symptomatic aortic stenosis. Successful deployment of a 34 mm Evolut FX valve with minimal aortic insufficiency post procedure
2. Successful arteriotomy closure with 2 Perclose devices.
3. Acute on chronic diastolic heart failure with LVEDP elevated at 31mmHG
Copy to: Rosi Arroyo
Lori Edmondson MD, FACC, [facility]
--- NOTE | 2024-11-10 10:11 | PTCARENOTE ---
Received the patient form the laboratory inspector in her bed. The patient is aaox3, vss, 95% on RA. NSR is noted on the monitor. BL groin sites are c/d/i. Positive pedal pulses noted BL. Activity restrictions and expected OOB time discussed with the patient.
Her call potter is within reach.
[2024-11-10] MEDS: LIPITOR 10 MG PO (10:21)
--- NOTE | 2024-11-10 11:06 | PTCARENOTE ---
The patient's left groin now has some scant sanguineous drainage the size of an pencil eraser tip with serosanguineous shadowing underneath. Her site is soft to palpitation. drainage was marked.
--- NOTE | 2024-11-10 14:54 | CM ---
pt s/p TAVR today, cm following
[2024-11-10] MEDS: ANCEF 5 IV (16:50)
[2024-11-10] MEDS: FLUSH (NSS) 2 FLUSH IV (16:50)
[2024-11-10] MEDS: TYLENOL 650 MG PO (22:22)
--- NOTE | 2024-11-10 23:41 | PTCARENOTE ---
Received patient at change of shift. SR with a first degree heart block on the monitor, HR in the 70s. L groin dressing with small marked drainage, unchanged. R groin dressing CDI. Bilateral groins ecchymotic. Pt complains of shoulder pain from
previous injury, PRN Tylenol administered as per JAN. Call potter within reach.
[2024-11-11] VITALS (8 sets, daily range): BP systolic 108–166; BP diastolic 63–80; PULSE 79; O2SAT 95–97; BMI 29.0
[2024-11-11 05:06] LABS: Hematocrit 37.5 % (37.0-47.0); Hemoglobin 12.5 g/dL (12.0-16.0); Mean Corp Hgb Conc. 33.3 g/dL (33.0-37.0); Mean Corpuscular Hgb 32.3 pg (27.0-31.0); Mean Corpuscular Volume 96.9 fL (81.0-99.0); Mean Platelet Volume 10.1 fL (7.4-10.4); Platelet Count 160 10^3/uL (130-400); Red Blood Cell Count 3.87 10^6/uL (4.20-5.40); Red Cell Dist. Width 12.2 % (11.5-14.5); White Blood Cell Count 7.1 10^3/uL (4.8-10.8)
[2024-11-11 05:31] LABS: Blood Urea Nitrogen 22 mg/dl (7-17); Calcium 8.7 mg/dl (8.4-10.2); Carbon Dioxide 24 mmol/L (22-30); Chloride 105 mmol/L (98-107); Estimated Creatinine Clearance 82 ml/min; Glucose 108 mg/dl (70-99); Sodium 139 mmol/L (135-145); eGFR > 60.00
--- NOTE | 2024-11-11 07:11 | W.PN.CT ---
Today's Communication / Plan
-
-pod #1
-no significant issues overnight, c/o chronic back pain
-nsr 60s overnight. No radha or pauses
-new transient LBBB postop - resolved. New 1st degree AVB
-diuresed with iv Lasix postop with good response - UO 1400+
-Echo today
-encourage IS, ambulate
-current meds (ASA, Lipitor)
Assessment / Plan
-
- Severe symptomatic aortic valve stenosis- s/p Right trans femoral TAVR with a 34 mm Medtronic Evolut FX device on 11/10/24, pod #1
- Preop and postop LVEF was 65% without inotropic support, no regional wall motion abnormalities or dyskinesia. The aortic valve was well seated with only trace PVL.
- Acute on chronic congestive heart failure with LVEDP of 30 mmHg pre-TAVR- diuresed with 40 iv Lasix post procedure (UO 1400+)
- Acute postop LBBB
- History of COVID-19 infection
- Polycystic ovarian syndrome
- Osteopenia
- Multiple orthopedic procedures (b/l TKR, THR)
- Chronic back pain
Discussed patient care with: Nursing and Care Team
Subjective
-
Date of Service: November 11, 2024
Objective Data
-
PT 12.5 Sec (11.4-14.6) 11/01/24 12:09
INR 0.91 11/01/24 12:09
APTT 30.3 Sec (23.4-35.0) 11/01/24 12:09
Vital Signs
Vital Signs
Temp Pulse Resp BP Pulse Ox
97.8 F 78 18 118/69 95
11/10/24 22:15 11/10/24 23:00 11/10/24 22:15 11/10/24 22:17 11/10/24 22:15
CT Intake/Output/Weight
11/10/24 11/10/24 11/11/24
06:59 18:59 06:59
Intake Total 1100 / 1100
Output Total 1400 / 1400
Balance -300 / -300
SaO2: 95
Physical Exam
-
General: Awake and AOx3
Cardiovascular: Regular rate & rhythm, Murmur (1/6 soft murmur) and No Rub
Respiratory: Rales (at R base. No wheeze)
Incision: Other (groins are cdi, nontender, no hematoma b/l)
Extremities: Other (trace edema bl)
Data Reviewed
-
Lab Results: Results Reviewed
Medications: Active Meds Reviewed
Chest X-Ray: Report Reviewed and Image Reviewed
ECG: Report Reviewed and Image Reviewed
[2024-11-11] MEDS: LOW STRENGTH ASPIRIN 81 MG PO (08:26)
[2024-11-11] MEDS: LIPITOR 10 MG PO (08:26)
--- NOTE | 2024-11-11 08:44 | W.DCSUMMARY ---
Discharge Summary
Discharge Data
Date of Admission: 11/10/24
Date of Discharge: 11/11/24
-
Pending Results: No
Hospital Course
Primary care physician: Moe Gustafson
Outpatient director of community center: Demetrice Arroyo
Inpatient consultants:
[facility] Cardiology
Procedures:
1. TAVR
Primary Diagnosis:
1. severe nonrheumatic aortic stenosis
Secondary Diagnoses:
1. Acute on chronic congestive heart failure with LVEDP of 30 mmHg pre-TAVR
3. History of COVID-19 infection
4. Polycystic ovarian syndrome
5. Osteopenia
6. Osteoarthritis with multiple orthopedic procedures
7. Postoperative hypotension�expected
8. New left bundle branch block
9. Hypertension
HPI: 84-year-old female was electively admitted on 11/10/2024 for transfemoral TAVR for due to severe symptomatic nonrheumatic aortic stenosis.
Hospital course: Patient underwent a right transfemoral TAVR #34 mm Evolut FX procedure by Drs. Harvey Guzmán and Lori Edmondson. Patient required Levophed in the recovery room due to expected postprocedural hypotension. Patient developed new left
bundle branch block and beta-jonathon therapy was held. Patient received Lasix 40 mg IV for preop LVEDP of 30. Anticoagulation will be with aspirin only. On postoperative day #1, the left bundle branch resolved on morning EKG and patient was noted
to be in sinus rhythm with first-degree AV block. CXR was stable and predischarge echocardiogram reported a normal EF of 55-60% with AV gradients of 11/6 mmHg and no AI. Patient was deemed stable for discharge to home.
Home medication changes:
None
Discharge Plan
-
Patient Disposition: Home (Routine Discharge)
Discharge Diagnosis/Procedures: TF-TAVR
Condition: Good
Diet: Low Cholesterol and 2 Gram Sodium
Activity: As tolerated
Driving Restrictions: No driving for 1 week
Bathing Restrictions: OK to Shower
Others Tests: Follow Up Echocardiogram: 12/15/2024 at 3pm at [facility]
Other Services: Cardiac Rehab
Wound Care: Please do not apply lotions, creams or powders to groin areas. Please monitor groins for increased pain, swelling, redness or drainage. Notify your doctor if any occur.
Specialty Instructions: Weigh Daily- Call MD for wt gain/loss 3 lbs overnight/5 lbs in 1 week
Referrals:
CT Transitional Care Nurse [Outside]
(
The Cardiothoracic Transitional Care Nurse will call you to set up a visit in 1-2 days.)
[facility]. Cardiac Rehab [Outside] - 12/19/24 1:00 pm
(Cardiac Rehab Orientation appointment is on 12/19/24 1pm
The Cardiac Rehab gym is located on the first floor of the [facility]ovascular [facility].)
Moe Gustafson MD [Family Provider] -
Adriana Lockhart PA-C [Specified Professional Personl] - 12/19/24 2:00 pm
Prescriptions:
Continued
losartan 50 MG tablet
50 mg PO DAILY
vitamin B complex 1 TAB tablet
1 tab PO PRN PRN (Reason: when wanted)
biotin 5 mg Tablet
5 mg PO DAILY PRN (Reason: MUSCLE SPASM)
multivitamin Tablet
1 tab PO DAILY PRN (Reason: SUPPLEMENT)
omega-3 fatty acids-fish oil 684-1,200 mg Capsule,Delayed Release(Dr/Ec)
1 cap PO DAILY PRN (Reason: when wanted)
atorvastatin 10 mg Tablet
10 mg PO DAILY Qty: 0 0RF
aspirin 81 mg
81 mg PO DAILY Qty: 0 0RF
Discharge Orders:
Discharge Patient (As Directed); Ordered 11/11/24
Ordered By: Coby Ford
Care Plan Goals
Care Plan Goals:
Problem: Readiness for enhanced knowledge related to diagnosis and treatment plan
Goal: Understand your diagnosis and treatment plan needs, including medications if applicable.
Instructions: Know your diagnosis, underlying causes and treatment plan options, including medications if applicable. Consult with your health care team to learn about your diagnosis and treatment plan, including medications if applicable.
Discharge Date and Time
Print Language: NEPALI
--- NOTE | 2024-11-11 12:59 | PTCARENOTE ---
Pt OOB, ambulating in room and young, zita well. Denies pain.
[2024-11-11] MEDS: FLUAD (65 yr+) 2024-2025 FORMULA 0.5 ML IM (15:14)
--- NOTE | 2024-11-11 15:46 | W.PN.CARDCBS ---
Today's Communication / Plan
-
-pod #1 status post transfemoral 34 mm Medtronic Evolut FX
-no significant issues overnight,no issues at groin sites
-No significant events on tele
-new transient LBBB postop - resolved. New 1st degree AVB
-s/p IV diuresis
-Echo today reviewed with stable valve and gradients post TAVR. No PVL. No effusion.
-encourage IS, ambulate. Stable for home today.
-current meds (ASA, Lipitor)
Impression / Plan
-
Assessment / Plan
Outpatient equip maint eng: Dr. Rosi Arroyo
- Severe symptomatic aortic valve stenosis- s/p Right trans femoral TAVR with a 34 mm Medtronic Evolut FX device on 11/10/24, pod #1
- Preop and postop LVEF was 65% without inotropic support, no regional wall motion abnormalities or dyskinesia. The aortic valve was well seated with only trace PVL.
- Acute on chronic congestive heart failure with LVEDP of 30 mmHg pre-TAVR- diuresed with 40 iv Lasix post procedure (UO 1400+)
- Acute postop LBBB, resolved, AM ECG with first degree AVB. No LBBB
- History of COVID-19 infection
- Polycystic ovarian syndrome
- Osteopenia
- Multiple orthopedic procedures (b/l TKR, THR)
- Chronic back pain
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
Subjective
Date of Service: November 11, 2024
Doing well this morning. Out of bed and ambulating without any complaints. No issues at the groin sites.
Objective
Labs:
11/11/24 04:41
11/11/24 04:41
Labs
Hgb 12.5 g/dL (12.0-16.0) 11/11/24 04:41
Hct 37.5 % (37.0-47.0) 11/11/24 04:41
Plt Count 160 10^3/uL (130-400) 11/11/24 04:41
PT 12.5 Sec (11.4-14.6) 11/01/24 12:09
INR 0.91 11/01/24 12:09
APTT 30.3 Sec (23.4-35.0) 11/01/24 12:09
Sodium 139 mmol/L (135-145) 11/11/24 04:41
Potassium 4.0 mmol/L (3.5-5.1) 11/11/24 04:41
BUN 22 mg/dl (7-17) H 11/11/24 04:41
Creatinine 0.6 mg/dL (0.6-1.0) 11/11/24 04:41
Glucose 108 mg/dl (70-99) H 11/11/24 04:41
Vital Signs and I&O:
Vital Signs
Temp Pulse Resp BP Pulse Ox
98.5 F 68 18 121/63 95
11/11/24 15:20 11/11/24 12:00 11/11/24 15:20 11/11/24 11:44 11/11/24 15:20
Vital Signs
Temp Pulse Resp BP Pulse Ox
98.5 F 68 18 121/63 95
11/11/24 15:20 11/11/24 12:00 11/11/24 15:20 11/11/24 11:44 11/11/24 15:20
Intake & Output
11/09/24 11/10/24 11/11/24 11/12/24
06:59 06:59 06:59 06:59
Intake Total 1100 / 1100
Output Total 1400 / 1400
Balance -300 / -300
Physical Exam
Physical Exam
Patient is awake, alert and oriented x 3, no acute distress
Regular rate, normal S1 and S2, 1 out of 6 systolic ejection murmur at the right upper sternal border
Normal carotid upstrokes, no carotid bruit, no JVD
Lungs are clear to auscultation bilaterally
Bilateral groin sites with dressing in place which is clean, dry and intact without evidence of hematoma, bruit
Warm extremities without significant edema
== END 2024-11-11 15:52 | disposition home or self-care (01) | DRG 266 ==
LOC: IVU 05:27
PROVIDERS: Nurse Practitioner; ADMITTING PHYSICIAN Thoracic Surgery (Cardiothoracic Vascular Surgery); CONSULT PHYSICIAN Internal Medicine Cardiovascular Disease; FAMILY PHYSICIAN Internal Medicine
PROC: 02RF38Z Replacement of Aortic Valve with Zooplastic Tissue, Percutaneous Approach (ICD-10-PCS; 2024-11-10)
PROC: 3E02340 Introduction of Influenza Vaccine into Muscle, Percutaneous Approach (ICD-10-PCS; 2024-11-11)
DX: I35.0 Nonrheumatic aortic (valve) stenosis (principal); I50.33 Acute on chronic diastolic (congestive) heart failure; I11.0 Hypertensive heart disease with heart failure; E78.00 Pure hypercholesterolemia, unspecified; I34.0 Nonrheumatic mitral (valve) insufficiency; I87.2 Venous insufficiency (chronic) (peripheral); E28.2 Polycystic ovarian syndrome; M85.80 Other specified disorders of bone density and structure, unspecified site; M19.90 Unspecified osteoarthritis, unspecified site; I95.81 Postprocedural hypotension; I44.7 Left bundle-branch block, unspecified; I44.0 Atrioventricular block, first degree; G89.29 Other chronic pain; M54.9 Dorsalgia, unspecified; Z23 Encounter for immunization; Z79.82 Long term (current) use of aspirin; Z79.899 Other long term (current) drug therapy; Z86.16 Personal history of COVID-19; Z87.891 Personal history of nicotine dependence
CPT/HCPCS: 93308; 33361; 36415; 71045; 71046; 80048; 80053; 81003; 82248; 83036; 83880; 85025; 85027; 85347; 85610; 85730; 86850; 86900; 86901; 87070; 90662; 93005; 93306; 93321; 93325; C1760; C1769; C1894; G0008; Q9967

== ENCOUNTER → 2024-12-07 07:19 | Outpatient (REF) | payer BC, SELFPAY | LOC: PAVMRI 07:19 | PROVIDERS: ATTENDING PHYSICIAN Surgery; FAMILY PHYSICIAN Internal Medicine | DX: N28.89 Other specified disorders of kidney and ureter (principal) | CPT/HCPCS: 74183; A9575 ==

== ENCOUNTER → 2024-12-15 14:52 | Outpatient (REF) | payer BC, SELFPAY | LOC: RCS 14:52 | PROVIDERS: ATTENDING PHYSICIAN Internal Medicine Cardiovascular Disease; FAMILY PHYSICIAN Internal Medicine | DX: I35.0 Nonrheumatic aortic (valve) stenosis (principal); Z95.2 Presence of prosthetic heart valve | CPT/HCPCS: 93306 ==

== ENCOUNTER 2024-12-29 09:38 | Day surgery (SDC) | payer BC, SELFPAY | END 2024-12-29 12:00 | disposition home or self-care (01) | LOC: CATH 09:38 | PROVIDERS: ATTENDING PHYSICIAN Internal Medicine Cardiovascular Disease; FAMILY PHYSICIAN Internal Medicine; OTHER PHYSICIAN Internal Medicine Cardiovascular Disease | DX: I08.3 Combined rheumatic disorders of mitral, aortic and tricuspid valves (principal); I08.8 Other rheumatic multiple valve diseases | CPT/HCPCS: 93312; 93320; 93325 ==

== ENCOUNTER → 2025-01-10 13:36 | Outpatient (REF) | payer BC, SELFPAY ==
[2025-01-10 17:22] LABS: TSH 0.82 uIU/ml (0.47-4.68)
[2025-01-10 17:30] LABS: Free T4 1.35 ng/dl (0.78-2.19)
== END ==
LOC: HWLAB 13:36
PROVIDERS: ATTENDING PHYSICIAN Internal Medicine Cardiovascular Disease; FAMILY PHYSICIAN Internal Medicine
DX: E04.1 Nontoxic single thyroid nodule (principal)
CPT/HCPCS: 36415; 84439; 84443; 84481

== ENCOUNTER 2025-01-27 10:35 | Outpatient (RCR) | payer BC, SELFPAY ==
[2025-01-04 10:20] LABS: HDL Cholesterol 64 mg/dl; Total Cholesterol 164 mg/dl (50-199)
[2025-01-04 11:14] LABS: LDL Cholesterol, Calculated 74 mg/dl; Triglyceride 132 mg/dl (10-149); Very Low Density Lipoprotein 26 mg/dl (0-30)
== END 2025-01-27 23:59 | disposition home or self-care (01) ==
LOC: CRHB 10:35
PROVIDERS: ATTENDING PHYSICIAN Internal Medicine Cardiovascular Disease; FAMILY PHYSICIAN Internal Medicine
DX: Z95.4 Presence of other heart-valve replacement (principal)
CPT/HCPCS: 80061; 93797; 93798

== ENCOUNTER 2025-02-22 09:47 | Outpatient (RCR) | payer BC, SELFPAY | END 2025-02-27 08:48 | disposition home or self-care (01) | LOC: CRHB 09:47 | PROVIDERS: ATTENDING PHYSICIAN Internal Medicine Cardiovascular Disease; FAMILY PHYSICIAN Internal Medicine | DX: Z95.4 Presence of other heart-valve replacement (principal) | CPT/HCPCS: 93797; 93798 ==

== ENCOUNTER → 2025-02-27 09:57 | Outpatient (REF) | payer BC, SELFPAY | LOC: HWRAD 09:57 | PROVIDERS: ATTENDING PHYSICIAN Internal Medicine | DX: E04.2 Nontoxic multinodular goiter (principal) | CPT/HCPCS: 76536 ==

== ENCOUNTER → 2025-04-03 11:51 | Outpatient (REF) | payer BC, SELFPAY | LOC: PAVMRI 11:51 | PROVIDERS: ATTENDING PHYSICIAN Surgery; FAMILY PHYSICIAN Internal Medicine | DX: N28.89 Other specified disorders of kidney and ureter (principal) | CPT/HCPCS: 74183; A9575 ==

== ENCOUNTER → 2025-04-19 10:06 | Outpatient (REF) | payer BC, SELFPAY | LOC: RCS 10:06 | PROVIDERS: ATTENDING PHYSICIAN Internal Medicine Cardiovascular Disease; FAMILY PHYSICIAN Internal Medicine | DX: Z95.2 Presence of prosthetic heart valve (principal); R06.02 Shortness of breath | CPT/HCPCS: 93306 ==

== ENCOUNTER → 2025-11-01 09:29 | Outpatient (REF) | payer BC, SELFPAY | LOC: PAVMRI 09:29 | PROVIDERS: ATTENDING PHYSICIAN Surgery; FAMILY PHYSICIAN Internal Medicine | DX: N28.1 Cyst of kidney, acquired (principal); N28.89 Other specified disorders of kidney and ureter | CPT/HCPCS: 74183; A9575 ==